=== PATIENT | male | born 1990 | race Caucasian/White ===

== ENCOUNTER 2017-09-07 13:59 | Emergency (ER) | payer MEDICAID, OTHER ==
[2017-09-07] MEDS ORDERED: NS 1,000 ML IV ONE (14:43)
--- NOTE | 2017-09-07 14:46 | EDPHY ---
HPI/HX/ROS/PE/MDM Narrative: CHIEF COMPLAINT: Severe headache, vision changes, hand numbness HISTORY OF PRESENT ILLNESS: The patient is a 27 y/o male with a history of anxiety and pericarditis arriving at the referral of his PCP for severe headache , vision changes, and hand numbness yesterday with some continuing symptoms today. 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 He says, "I was talking, having a normal conversation and suddenly thought I got shot in the head." His coworker gave him some ibuprofen and his headache resolved completely after 15 minutes. He had no associated symptoms at that time. Later in the day he was putting equipment away and turned around and all the vision in his right eye went dark. He believes this was his right eye rather than his right field of vision and was associated with eye pressure, but no pain. He then felt "like I was wearing polarized glasses and the floor was uneven;" "my perception of floor and feet seemed really far away or too close" and he felt like he would trip. He had associated word finding difficulty during this time. His right eye felt and continues to feel somewhat numb and "like my eyelashes are stuck together." The darkness in his vision and perception difficulty lasted about an hour and as it began to resolve , he developed notable right hand numbness in his three middle fingers. This also resolved spontaneously. He did not notice obvious weakness or paresthesias in his legs or elsewhere. He woke up this morning feeling normal, but after coughing he noticed a moderate left parietal headache. He took 6 ibuprofen today without improvement in his pain. He notes he was hit on the left side of his head with a microwave on Wednesday while cleaning, but had no issues at that time. He never experienced peripheral symptoms on his left side. He has no known history of bleeding or clotting disorders. His mother has epilepsy and history of a stroke. No family history of brain aneurysms. No fever, chills, chest pain, shortness of breath, palpitations, vomiting, diarrhea, urinary complaints, lightheadedness. REVIEW OF SYSTEMS: Aside from elements discussed in the HPI, a comprehensive 10-point review of systems was reviewed and is negative. PAST MEDICAL HISTORY: Anxiety - clonazepam; pericarditis with chronic chest pain and pressure - lisinopril; GERD; chronic back pain - occasional Percocet use FAMILY HISTORY: Mother has epilepsy and had stroke SOCIAL HISTORY: Works 2 photo finisher jobs. Smoker. Drinks alcohol. Uses marijuana. PCP: Kaia Diaz VITAL SIGNS: Reviewed by me GENERAL: Well-developed, well-nourished, resting comfortably in no respiratory distress. HEENT: Atraumatic. Eyes: No icterus, mild injection on medial side of right eye. EOMI. PERRL. Mouth: moist mucous membranes. No erythema or lesions. Neck : supple with no adenopathy. LUNGS: Clear to auscultation bilaterally, no wheezes, rhonchi or rales. CARDIAC: Regular rate and rhythm, no rubs, murmurs or gallops. ABDOMEN: Soft, nontender, nondistended, bowel sounds normal. BACK: No CVA tenderness. EXTREMITIES: No trauma. No edema. Range of motion is normal throughout. NEURO: Alert and oriented, cranial nerves II through XII are intact. EOMI, PERRL, Motor strength 5 over 5 in all major muscle groups, no pronator drift. Sensation intact to light touch. Normal finger to nose and heal to aggarwal. Normal gait. SKIN: Warm and dry, no rash. PSYCHIATRIC: Normal mentation, no agitation. Portions of this note were transcribed by a medical staff physician. I personally performed a history, physical exam, medical decision making, and confirmed accuracy of information the transcribed note. ED Course: This is a 27 y/o male with a history of pericarditis who presents for evaluation of a severe headache, vision changes, word finding difficulty, and right finger numbness yesterday. He did have minor head trauma 4 days ago when a microwave struck the left parietal aspect of his head. This is the same location where he developed a sudden severe headache that lasted 15 minutes yesterday and where he continues to have a moderate headache today. His right eye continues to feel somewhat numb. His neurologic exam is completely normal. Plan for IV, basic labs, and imaging. Head CT, head CTA, and neck CTA ordered. 1000mg PO Tylenol administered. Patient's visual acuities: 20/40 in the right eye, 20/30 in the left eye, 20/ 30 in both eyes. CTs are negative per radiology. Migraine cocktail administered. Patient's history is concerning for potential subarachnoid hemorrhage in the symptom onset was yesterday. CT scan is negative for any signs of acute bleeding. There is no demonstrable aneurysm on the CTA. No dissections. Patient looks quite well. The headache today is relatively moderate. He would strongly prefer not to undergo lumbar puncture. 1640: Consulted with Dr. Wesley, neurology. He will see patient in his office for followup tomorrow. Does not feel the patient needs further evaluation or an LP at this time. Reevaluated patient and discussed work up and plan for follow up. He feels improved after medication. He declines further work up here and is comfortable with discharge plan to see Dr. Wesley tomorrow. Return precautions discussed. MDM: After history was obtained, and the physical exam performed, a differential for headache was considered including, but not limited to, subarachnoid hemorrhage, migraine headache, tension headache, venous thromboembolic disease, TIA, stroke , cluster headaches, and infectious causes such as meningitis, sinusitis, encephalitis. - Data Points Imaging Results: Imaging Impressions Head CT 09/07/17 14:43 Impression: 1. Right maxillary sinus 1.7-cm mucous retention cyst or polyp. 2. Otherwise normal CT brain without contrast. 3. No acute hemorrhage, hydrocephalus, subarachnoid hemorrhage or mass effect. 4. Consider MRI of the brain without and with contrast enhancement, if there is continued clinical concern. Findings and recommendations discussed with Emergency Department physician, Vibha Blanco MD at 16:04 hour, 09/07/2017. Final report concurs with initial preliminary interpretation. Head CTA 09/07/17 14:43 Impression: 1. No carotid or vertebral dissection, occlusion, or flow-limiting stenosis. 2. Patent vertebral basilar system with a dominant left vertebral artery and a small right vertebral artery. Measurement of carotid stenosis is based on the residual internal carotid diameter with [place] Symptomatic Carotid Endarterectomy Trial (NASCET) based stenosis levels. CT Angiogram of the Brain Clinical Indications: Severe headache yesterday, right eye vision loss, right hand numbness. Technique: CT angiogram of the brain and neck was performed with the uneventful intravenous administration of 85 mL Isovue-370 contrast. Multiplanar reconstructions including 3D reconstructions performed and evaluated on [employer] workstation in order to better evaluate the [place] vessels. Images were manipulated by the radiologist at the computer workstation. Dose reduction techniques were utilized. Findings: Major vessels of the [place] are adequately displayed, demonstrating no evidence of aneurysm, vascular malformation, flow-limiting stenosis, or occlusion. Bilateral cavernous internal carotid arteries and vertebrobasilar system demonstrates no evidence of flow-limiting stenosis, aneurysm, occlusion, or dissection. Superior sagittal sinus, transverse sinuses , and major veins demonstrate no evidence of intraluminal thrombi. Impression: Negative CT angiogram of the brain. Findings and recommendations discussed with Emergency Department physician, Dr. Vibha Blanco at 1626 hours on September 07, 2017. Final report concurs with initial preliminary interpretation. Neck CTA 09/07/17 14:43 Impression: 1. No carotid or vertebral dissection, occlusion, or flow-limiting stenosis. 2. Patent vertebral basilar system with a dominant left vertebral artery and a small right vertebral artery. Measurement of carotid stenosis is based on the residual internal carotid diameter with [place] Symptomatic Carotid Endarterectomy Trial (NASCET) based stenosis levels. CT Angiogram of the Brain Clinical Indications: Severe headache yesterday, right eye vision loss, right hand numbness. Technique: CT angiogram of the brain and neck was performed with the uneventful intravenous administration of 85 mL Isovue-370 contrast. Multiplanar reconstructions including 3D reconstructions performed and evaluated on [employer] workstation in order to better evaluate the [place] vessels. Images were manipulated by the radiologist at the computer workstation. Dose reduction techniques were utilized. Findings: Major vessels of the [place] are adequately displayed, demonstrating no evidence of aneurysm, vascular malformation, flow-limiting stenosis, or occlusion. Bilateral cavernous internal carotid arteries and vertebrobasilar system demonstrates no evidence of flow-limiting stenosis, aneurysm, occlusion, or dissection. Superior sagittal sinus, transverse sinuses , and major veins demonstrate no evidence of intraluminal thrombi. Impression: Negative CT angiogram of the brain. Findings and recommendations discussed with Emergency Department physician, Dr. Vibha Blanco at 1626 hours on September 07, 2017. Final report concurs with initial preliminary interpretation. Imaging: Discussed imaging studies w/ product engineer Radiologist Laboratory Results: Laboratory Results 09/07/17 14:45 09/07/17 14:45 09/07/17 09/07/17 14:45 14:45 WBC 8.03 10^3/uL 10^3/uL (3.80-9.50) RBC 5.26 10^6/uL 10^6/uL (4.40-6.38) Hgb 16.2 g/dL g/dL (13.7-17.5) Hct 45.9 % % (40.0-51.0) MCV 87.3 fL fL (81.5-99.8) MCH 30.8 pg pg (27.9-34.1) MCHC 35.3 g/dL g/dL (32.4-36.7) RDW 12.0 % % (11.5-15.2) Plt Count 242 10^3/uL 10^3/uL (150-400) MPV 9.9 fL fL (8.7-11.7) Neut % (Auto) 59.9 % % (39.3-74.2) Lymph % (Auto) 28.3 % % (15.0-45.0) [place] % (Auto) 9.6 % % (4.5-13.0) Eos % (Auto) 1.1 % % (0.6-7.6) Baso % (Auto) 0.7 % % (0.3-1.7) Nucleat RBC Rel Count 0.0 % % (0.0-0.2) Absolute Neuts (auto) 4.81 10^3/uL 10^3/uL (1.70-6.50) Absolute Lymphs (auto) 2.27 10^3/uL 10^3/uL (1.00-3.00) Absolute Monos (auto) 0.77 10^3/uL 10^3/uL (0.30-0.80) Absolute Eos (auto) 0.09 10^3/uL 10^3/uL (0.03-0.40) Absolute Basos (auto) 0.06 10^3/uL 10^3/uL (0.02-0.10) Absolute Nucleated RBC 0.00 10^3/uL 10^3/uL (0-0.01) Immature Gran % 0.4 % % (0.0-1.1) Immature Gran # 0.03 10^3/uL 10^3/uL (0.00-0.10) Sodium 138 mEq/L mEq/L (134-144) Potassium 4.1 mEq/L mEq/L (3.5-5.2) Chloride 103 mEq/L mEq/L (97-110) Carbon Dioxide 23 mEq/l mEq/l (22-31) Anion Gap 12 mEq/L mEq/L (8-16) BUN 13 mg/dL mg/dL (7-23) Creatinine 0.8 mg/dL mg/dL (0.7-1.3) Estimated GFR > 60 Glucose 98 mg/dL mg/dL (70-100) Calcium 10.2 mg/dL mg/dL (8.5-10.4) Medications Given: Discontinued Medications Acetaminophen (Tylenol) 1,000 mg PO EDNOW ONE Stop: 09/07/17 15:53 Last Admin: 09/07/17 15:58 Dose: 1,000 mg Diphenhydramine HCl (Benadryl Injection) 25 mg IVP EDNOW ONE Stop: 09/07/17 16:28 Last Admin: 09/07/17 16:42 Dose: 25 mg Hydromorphone HCl (Dilaudid) 1 mg IVP EDNOW ONE Stop: 09/07/17 16:29 Last Admin: 09/07/17 16:42 Dose: 1 mg Sodium Chloride (Ns) 1,000 mls @ 0 mls/hr IV ONCE ONE; Wide Open PRN Reason: Protocol Stop: 09/07/17 14:44 Last Admin: 09/07/17 14:56 Dose: 1,000 mls Metoclopramide HCl (Reglan Injection) 10 mg IVP EDNOW ONE Stop: 09/07/17 16:28 Last Admin: 09/07/17 16:42 Dose: 10 mg General Time Seen by Provider: 09/07/17 14:17 Initial Vital Signs: Initial Vital Signs Temperature (C) 36.8 C 09/07/17 14:10 Heart Rate 95 09/07/17 14:10 Respiratory Rate 18 09/07/17 14:10 Blood Pressure 141/96 H 09/07/17 14:10 O2 Sat (%) 96 09/07/17 14:10 O2 Delivery Mode Room Air Allergies/Adverse Reactions: atenolol Allergy (Verified 09/07/17 14:09) citalopram hydrobromide [From Celexa] Allergy (Verified 02/06/15 18:30) Penicillins Allergy (Verified 02/06/15 18:30) prednisone Allergy (Verified 02/06/15 18:30) Sulfa (Sulfonamide Antibiotics) Allergy (Verified 11/28/17 14:09) Home Medications: Medication Instructions Recorded Albuterol Inhaler Hfa 02/06/15 CLONAZEPAM 02/06/15 Diclofenac Sodium 02/06/15 Flexeril 02/06/15 Hydroxyzine HCl 02/06/15 Lisinopril 02/06/15 Oxycodone-Acetaminophen 10-325 02/06/15 Thc 02/06/15 busPIRone 02/06/15 oxyCODONE/APAP 5/325 [Percocet 1 tab PO QID PRN #8 tab 09/07/17 [id number] (*)] Departure - Departure Disposition: Home, Routine, Self-Care Clinical Impression: Paresthesias in right hand Headache Qualifiers: Headache type: other headache syndrome Qualified Code(s): G44.89 - Other headache syndrome Condition: Good Instructions: Acute Headache (ED), Paresthesia (ED) Additional Instructions: 1. Follow up with Dr. Wesley, neurologist, tomorrow. Call his office first thing tomorrow morning and tell them you were seen in the ED today and that Dr. Wesley wants to evaluate you in the office. 2. Okay to take Tylenol or ibuprofen as directed below needed for pain. 3. Use Percocet as needed for severe pain only. This medication can make you drowsy. It also contains Tylenol (acetaminophen), so do not take Tylenol at the same time. 3. Return to the ED for any worsening of condition. Adult Pain & Fever Control: We recommend Acetaminophen (Tylenol) and Ibuprofen (Motrin,Advil) for pain and fever control. When fever is high or pain severe, both drugs can be used at the same time, but at different intervals. Please note the time differences. Your dose is: Acetaminophen 650mg every 4 to 6 hours Ibuprofen 600mg every 6-8 hours with food Note: do not take Acetaminophen with Hydrocodone (Vicodin, Lortab) or Oxycodone (Percocet). These medications also contain Acetaminophen. No more than 3000mg of Acetaminophen should be taken in 24 hours (for an adult). Referrals: Bi Wesley MD [Medical Doctor] - As per Instructions Prescriptions: oxyCODONE/APAP 5/325 [Percocet 5/325 (*)] 1 tab PO QID PRN #8 tab PRN Reason: Pain Report Scribed for: Vibha Blanco Report Scribed by: Poppy Baptiste Date of Report: 09/07/17 Time of Report: 15:18
[2017-09-07 14:52] LABS: % IMMATURE GRANULYOCYTES 0.4 % (0.0-1.1); ABSOLUTE IMMATURE GRANULOCYTES 0.03 10^3/uL (0.00-0.10); ADD DIFF? NO; ADD MORPH? NO; ADD SCAN? NO; ATYPICAL LYMPHOCYTE FLAG 0 (0-99); FRAGMENT RBC FLAG 0 (0-99); HEMATOCRIT 45.9 % (40.0-51.0); HEMOGLOBIN 16.2 g/dL (13.7-17.5); LEFT SHIFT FLG 0 (0-99); LIPEMIA HEMOLYSIS FLAG 90 (0-99); MEAN CELL HEMOGLOBIN 30.8 pg (27.9-34.1); MEAN CELL HEMOGLOBIN CONCENTR. 35.3 g/dL (32.4-36.7); MEAN CELL VOLUME 87.3 fL (81.5-99.8); MEAN PLATELET VOLUME 9.9 fL (8.7-11.7); PLATELET CLUMPS FLAG 0 (0-99); PLATELET COUNT 242 10^3/uL (150-400); RED BLOOD CELL COUNT 5.26 10^6/uL (4.40-6.38)
[2017-09-07 15:09] LABS: ANION GAP 12 mEq/L (8-16); CALCIUM 10.2 mg/dL (8.5-10.4); CARBON DIOXIDE 23 mEq/l (22-31); CHLORIDE 103 mEq/L (97-110); CREATININE 0.8 mg/dL (0.7-1.3); GLOMERULAR FILTRATION RATE > 60; GLUCOSE 98 mg/dL (70-100); POTASSIUM 4.1 mEq/L (3.5-5.2); SODIUM 138 mEq/L (134-144)
[2017-09-07] MEDS ORDERED: ACETAMINOPHEN 325 MG TAB ONE (15:20)
[2017-09-07] MEDS ORDERED: IOPAMIDOL (ISOVUE 370) 100 ML BTL IV ONE (15:20)
[2017-09-07] MEDS ORDERED: ACETAMINOPHEN 500 MG TAB PO ONE (15:52)
[2017-09-07] MEDS ORDERED: METOCLOPRAMIDE 10 MG/2 ML VIAL IVP ONE (16:27)
[2017-09-07] MEDS ORDERED: HYDROmorphONE/DILAUDID 1 MG/ML INJ IVP ONE (16:28)
[2017-09-07 17:30] VITALS: BP 115/70; PULSE 75; RESP 12; TEMP 96.8; O2SAT 98
== END 2017-09-07 17:30 | disposition home or self-care (01) ==
DX: G44.89 Other headache syndrome (principal); R20.2 Paresthesia of skin; E86.9 Volume depletion, unspecified
CPT/HCPCS: 96374; J1170; J1200; J2765; Q9967

== ENCOUNTER 2017-12-19 18:30 | Emergency (ER) | payer OTHER ==
[2017-12-19 18:44] VITALS: BP 144/89; PULSE 91; RESP 16; TEMP 98.6; O2SAT 97
--- NOTE | 2017-12-19 19:00 | EDPHY ---
HPI/HX/ROS/PE/MDM Narrative: CHIEF COMPLAINT: Exposed to HIV HPI: The patient is a 27 y/o male with a history of pericarditis complaining of exposure to HIV. He had sexual intercourse this morning when the condom he was wearing broke. The person he had sex with has undetectable HIV. He was concerned about the HIV exposure and wanted to start an anti-viral. No history of STI. No fever, rash, chest pain, shortness of breath. REVIEW OF SYSTEMS: Aside from elements discussed in the HPI, a comprehensive 10-point review of systems was reviewed and is negative. PMH: Pericarditis, hypertension, GERD SOCIAL HISTORY: Lives in [place], [facility] PHYSICAL EXAM: General: Patient is alert, in no acute distress. ENT: Eyes are normal to inspection. ENT inspection normal. Neck: Normal inspection. Full range of motion. Respiratory: No respiratory distress. Breath sounds normal bilaterally. Cardiovascular: Regular rate and rhythm. Strong peripheral pulses. Normal cap refill. Abdomen: The abdomen is nontender to palpation. There are no peritoneal signs. There are normal bowel sounds. Back: Normal to inspection. No tenderness to palpation. Skin: Normal color. No rash. Warm and dry. Extremities: Normal appearance. Full range of motion. Neuro: Oriented x3. Normal motor function. Normal sensory function. ED Course: 1907: Consulted with Dr. Norton, infectious disease, regarding this patient. She agrees to see this patient tomorrow. Patient will be placed on post-exposure precautions; 1 tab PO Truvada and 400mg PO Isentress administered. 1911: Reassessed patient and discussed plan for follow up with Dr. Norton. I have also advised him to follow up with his PCP. Return precautions provided; patient is comfortable with this plan. - Data Points Laboratory Results: Laboratory Results 12/19/17 19:20 12/19/17 19:20 12/19/17 12/19/17 19:20 19:20 WBC 9.13 10^3/uL 10^3/uL (3.80-9.50) RBC 4.93 10^6/uL 10^6/uL (4.40-6.38) Hgb 15.2 g/dL g/dL (13.7-17.5) Hct 44.5 % % (40.0-51.0) MCV 90.3 fL fL (81.5-99.8) MCH 30.8 pg pg (27.9-34.1) MCHC 34.2 g/dL g/dL (32.4-36.7) RDW 12.8 % % (11.5-15.2) Plt Count 216 10^3/uL 10^3/uL (150-400) MPV 9.8 fL fL (8.7-11.7) Neut % (Auto) 61.0 % % (39.3-74.2) Lymph % (Auto) 25.7 % % (15.0-45.0) [place] % (Auto) 9.7 % % (4.5-13.0) Eos % (Auto) 2.5 % % (0.6-7.6) Baso % (Auto) 0.7 % % (0.3-1.7) Nucleat RBC Rel Count 0.0 % % (0.0-0.2) Absolute Neuts (auto) 5.56 10^3/uL 10^3/uL (1.70-6.50) Absolute Lymphs (auto) 2.35 10^3/uL 10^3/uL (1.00-3.00) Absolute Monos (auto) 0.89 10^3/uL H 10^3/uL (0.30-0.80) Absolute Eos (auto) 0.23 10^3/uL 10^3/uL (0.03-0.40) Absolute Basos (auto) 0.06 10^3/uL 10^3/uL (0.02-0.10) Absolute Nucleated RBC 0.00 10^3/uL 10^3/uL (0-0.01) Immature Gran % 0.4 % % (0.0-1.1) Immature Gran # 0.04 10^3/uL 10^3/uL (0.00-0.10) Sodium 142 mEq/L mEq/L (135-145) Potassium 4.0 mEq/L mEq/L (3.5-5.2) Chloride 102 mEq/L mEq/L (97-110) Carbon Dioxide 26 mEq/l mEq/l (22-31) Anion Gap 14 mEq/L mEq/L (8-16) BUN 14 mg/dL mg/dL (7-23) Creatinine 0.8 mg/dL mg/dL (0.7-1.3) Estimated GFR > 60 Glucose 90 mg/dL mg/dL (70-100) Calcium 9.5 mg/dL mg/dL (8.5-10.4) Total Bilirubin 1.0 mg/dL mg/dL (0.1-1.4) AST 34 IU/L IU/L (17-59) ALT 70 IU/L IU/L (21-72) Alkaline Phosphatase 62 IU/L IU/L (38-126) Total Protein 7.4 g/dL g/dL (6.3-8.2) Albumin 4.7 g/dL g/dL (3.5-5.0) Medications Given: Discontinued Medications Emtricitabine/Tenofovir (Truvada) 1 tab PO EDNOW ONE Stop: 12/19/17 19:31 Last Admin: 12/19/17 19:35 Dose: 1 tab Raltegravir (Isentress) 400 mg PO EDNOW ONE Stop: 12/19/17 19:12 Last Admin: 12/19/17 19:35 Dose: 400 mg General Time Seen by Provider: 12/19/17 18:59 Initial Vital Signs: Initial Vital Signs Temperature (C) 37.0 C 12/19/17 18:41 Heart Rate 91 12/19/17 18:41 Respiratory Rate 16 12/19/17 18:41 Blood Pressure 144/89 H 12/19/17 18:41 O2 Sat (%) 97 12/19/17 18:41 O2 Delivery Mode Room Air Allergies/Adverse Reactions: atenolol Allergy (Verified 09/07/17 14:09) citalopram hydrobromide [From Celexa] Allergy (Verified 02/06/15 18:30) Penicillins Allergy (Verified 02/06/15 18:30) prednisone Allergy (Verified 02/06/15 18:30) Sulfa (Sulfonamide Antibiotics) Allergy (Verified 09/07/17 14:09) Home Medications: Medication Instructions Recorded Albuterol Inhaler Hfa 02/06/15 CLONAZEPAM 02/06/15 Diclofenac Sodium 02/06/15 Flexeril 02/06/15 Hydroxyzine HCl 02/06/15 Lisinopril 02/06/15 Oxycodone-Acetaminophen 10-325 02/06/15 Thc 02/06/15 busPIRone 02/06/15 oxyCODONE/APAP 5/325 [Percocet 1 tab PO QID PRN #8 tab 09/07/17 5/325 (*)] Emtricitabine/Tenofovir [Truvada 1 tab PO DAILY #3 tab 12/19/17 200MG/300MG (*)] Raltegravir [Isentress] 400 mg PO BID #6 tab 12/19/17 Departure - Departure Disposition: Home, Routine, Self-Care Clinical Impression: HIV exposure Condition: Good Instructions: HIV Transmission (ED), HIV Infection (ED) Additional Instructions: Take Truvada and Isentress as prescribed. Follow up with Dr. Norton (infectious disease) tomorrow; they will call you. Follow up with your primary doctor within 1 week. Return to the Emergency Department for fever, chest pain, shortness of breath, increasing pain or other worsening of condition. Referrals: [facility] (ED,. [Edm Groups for Call Sched] - As per Instructions Francy Norton MD [Medical Doctor] - As per Instructions [facility],. [Clinic] - As per Instructions Stand Alone Forms: Work Excuse Prescriptions: Emtricitabine/Tenofovir [Truvada 200MG/300MG (*)] 1 tab PO DAILY #3 tab Raltegravir [Isentress] 400 mg PO BID #6 tab Report Scribed for: Alex Olivas Report Scribed by: Kristi Atkinson Date of Report: 12/19/17 Time of Report: 19:01 Physician Review and Approval Statement: Portions of this note were transcribed by an ED scribe. I personally performed the history, physical exam, and medical decision making; and confirm the accuracy of the information in the transcribed note.
[2017-12-19] MEDS ORDERED: RALTEGRAVIR 400 MG TAB PO ONE (19:11)
[2017-12-19 19:25] LABS: PLATELET COUNT 216 10^3/uL (150-400)
[2017-12-19] MEDS ORDERED: EMTRICITABINE/TENOFOVIR 200MG/300MG TAB PO ONE (19:30)
== END 2017-12-19 19:40 | disposition home or self-care (01) ==
DX: Z20.6 Contact with and (suspected) exposure to human immunodeficiency virus [HIV] (principal); I10 Essential (primary) hypertension